=== PATIENT | female | born 1995 | race Two or more races ===

== ENCOUNTER 2019-05-27 17:21 | Emergency (ER) | payer MEDICAID ==
[~2019-05-27] VITALS: Ht 157.5 cm; Wt 49.9 kg
[2019-05-27 17:32] VITALS: BP 96/62
--- NOTE | 2019-05-27 17:48 | NUR ---
ED Nurse Note: Pt came in due to right foot pain x 1 week. Pt reports she stepped on something that caused the pain. AAO x4, ambulatory.
--- NOTE | 2019-05-27 18:22 | Emergency Room Report ---
History of Present Illness General Chief Complaint: Pain Source: Patient Present Illness HPI 23-year-old female with no symptom past history here complaining of 1 week of pain over left heel after she walked barefoot on grass. Patient does not recall whether she punctured herself however feels like there is a foreign body in her foot. Rating the pain 5 out of 10 upon walking on the heel. Denies fever and chills, pain radiation, tingling numbness. Patient is very demanding and asked to be seen before everybody else and wants everything to be expedited for her. When I explained to her that we need to do the x-ray to see if there is any obvious foreign body or any spur patient makes a comment of saying what is even the point of doing x-ray if is not going to be taken out for him to the foreign body in the emergency room. Patient denies other injuries, chest pain, shortness of breath, palpitation, and all other associated symptoms. Is up-to- date with her tetanus shot. Allergies: Coded Allergies: PENICILLIN G (Verified Allergy, Unknown, 05/27/19) Patient History Past Medical History: see triage record Past Surgical History: unable to obtain Pertinent Family History: none Last Menstrual Period: 04/2019 Now: No Immunizations: UTD Reviewed Nursing Documentation: PMH: Agreed; PSxH: Agreed Nursing Documentation-PMH Past Medical History: No Stated History Review of Systems All Other Systems: negative except mentioned in HPI Physical Exam Vital Signs Date Time Temp Pulse Resp B/P (MAP) Pulse Ox O2 Delivery O2 Flow Rate FiO2 05/27/19 17:32 98.2 82 15 96/62 98 Room Air Sp02 EP Interpretation: reviewed, normal General Appearance: no apparent distress, alert, GCS 15, non-toxic Head: normocephalic, atraumatic Eyes: bilateral eye normal inspection, bilateral eye PERRL ENT: hearing grossly normal, normal pharynx, no angioedema, normal voice Neck: full range of motion, supple/symm/no masses Respiratory: chest non-tender, lungs clear, normal breath sounds, no rhonchi, no wheezing, speaking full sentences Cardiovascular #1: regular rate, rhythm, no edema, no murmur, normal capillary refill Cardiovascular #2: 2+ dorsalis pedis (R), 2+ dorsalis pedis (L) Gastrointestinal: normal bowel sounds, non tender, soft, non-distended, no guarding, no rebound Rectal: deferred Genitourinary: no CVA tenderness Musculoskeletal: normal inspection, back normal, digits/nails normal, gait/ station normal, normal range of motion, non-tender, no calf tenderness Neurologic: alert, oriented x3, responsive, motor strength/tone normal, sensory intact, speech normal Psychiatric: judgement/insight normal, memory normal, mood/affect normal, no suicidal/homicidal ideation Skin: no rash, other - No puncture wound Lymphatic: no adenopathy Medical Decision Making PA Attestation All my diagnosis and treatment plans were reviewed ad discussed with my supervising physician Dr. Franco Diagnostic Impression: Primary Impression: Foreign body foot/toe Additional Impression: Heel pain ER Course 23-year-old female with no symptom past history here complaining of 1 week of pain over left heel after she walked barefoot on grass. Patient does not recall whether she punctured herself however feels like there is a foreign body in her foot. Rating the pain 5 out of 10 upon walking on the heel. Denies fever and chills, pain radiation, tingling numbness. Patient is very demanding and asked to be seen before everybody else and wants everything to be expedited for her. When I explained to her that we need to do the x-ray to see if there is any obvious foreign body or any spur patient makes a comment of saying what is even the point of doing x-ray if is not going to be taken out for him to the foreign body in the emergency room. Patient denies other injuries, chest pain, shortness of breath, palpitation, and all other associated symptoms. Is up-to- date with her tetanus shot. Ddx considered but are not limited to: foot fracture, foot sprain, foot contusion, foot strain Vital signs: are WNL, pt. is afebrile H&PE are most consistent with: Possible foreign body however none visible, heel pain ORDERS: foot Xray , Keflex in case of infection, ibuprofen ED INTERVENTIONS: None required at this time. DISCHARGE: At this time pt. is stable for d/c to home. Will provide printed patient care instructions, and any necessary prescriptions. Care plan and follow up instructions have been discussed with the patient prior to discharge. After I explained to her many times she still wants the pain to be gone right at this moment patient is with the point of taking ibuprofen as the pain is come back she does not seem to understand patient is to follow-up with her primary care provider for referral to specialist. Patient stable for discharge Other X-Ray Diagnostic Results Other X-Ray Diagnostic Results : X-Ray ordered: Foot # of Views/Limited Vs Complete: 3 View Indication: Pain EP Interpretation: Yes PA Xray: Interpretation reviewed, by supervising MD, and agrees with findings. Interpretation: no dislocation, no soft tissue swelling, no fractures Impression: No acute disease Electronically Signed by: Lotus Garibay PA-C Last Vital Signs Date Time Temp Pulse Resp B/P (MAP) Pulse Ox O2 Delivery O2 Flow Rate FiO2 05/27/19 17:32 98.2 82 15 96/62 (73) 98 Room Air Disposition: HOME, SELF-CARE Condition: Stable Scripts Ibuprofen* (MOTRIN*) 600 Mg Tablet 600 MG ORAL Q8H PRN for For Pain, #30 TAB 0 Refills Prov: Lotus Moscoso 05/27/19 Cephalexin* (KEFLEX*) 500 Mg Capsule 500 MG ORAL EVERY 6 HOURS for 7 Days, #28 CAP Prov: Lotus Moscoso 05/27/19 Patient Instructions: Heel Compression Syndrome With [facility] Additional Instructions: Take medication as directed follow-up with your primary care provider for referral to specialist for possible foreign body foot. Lotus Moscoso May 27, 2019 18:22
[2019-05-27] MEDS ORDERED: CEPHALEXIN500 MG ORAL (18:23)
[2019-05-27] MEDS ORDERED: IBUPROFEN600 MG ORAL (18:23)
[2019-05-27 18:35] VITALS: BP 96/62
--- NOTE | 2019-05-27 18:36 | NUR ---
ER DISCHARGE NOTE: Patient is cleared to be discharged per ERMD, pt is aox4, on room air, with stable vital signs. pt was given dc and prescription instructions, pt was able to verbalize understanding, pt id band removed without complications. pt is able to ambulate with steady gait. pt took all belongings.
--- NOTE | 2019-05-28 13:34 | Diagnostic Imaging Report ---
Indication: Foot Pain Comparison: None Findings: 3 views of the right foot were obtained. No acute fractures, malalignment, erosions or periostitis are identified. Impression: No acute findings.
== END 2019-05-27 18:37 | disposition home or self-care (01) ==
LOC: EMR 18:20
DX: S90.852A Superficial foreign body, left foot, initial encounter (principal); X58.XXXA Exposure to other specified factors, initial encounter; Y92.9 Unspecified place or not applicable; Z88.0 Allergy status to penicillin; M79.672 Pain in left foot
CPT/HCPCS: 99283